=== PATIENT | female | born 1975 | race Caucasian/White ===

== ENCOUNTER 2016-07-18 14:02 | Emergency (ER) | payer BC ==
[2016-07-18 14:07] VITALS: TEMP 98.1; BMI 24.7
[2016-07-18 14:41] LABS: MPV 8.7 fL (7.4-10.4)
--- NOTE | 2016-07-18 14:51 | EDPRACDOC ---
- General Information Chief Complaint: Chest Pain Stated Complaint: SENT FROM Time Seen by Provider: 07/18/16 14:28 Information Source: Patient Mode of Arrival: Car Home Medications: Home Medications Nuvaring 1 item PV DIR 07/18/16 Allergies/Adverse Reactions: Allergies Allergy/AdvReac Type Severity Reaction Status Date / Time No Known Allergies Allergy Verified 07/18/16 14:04 - History of Present Illness Onset: 2 days HPI: 2 DAYS OF CHEST TIGHTNESS. MORE PRONOUNCED AT REST. NOT EXERTIONAL. NO SOB. NO RECENT LONG TRIPS OR SURGERY. NO HTN, NO FAM HX CAD. SENT FROM URGENT CARE - [facility]. NO COUGH. ED Past Medical History - History Reviewed Yes Nurses notes reviewed and agree except as marked - Patient Medical History Psychological History: Denies: Depression Systemic History: Denies: Cancer Surgical History: Denies: Hysterectomy - Social Medical History Smoking Status: Never smoker EDM Review of Systems - Review of Systems ROS Negative Except as Marked: Yes All systems reviewed and were negative except as marked Constitutional: No Symptoms Reported Eyes: No Symptoms Reported Respiratory: No Symptoms Reported. negative: Shortness of Breath Cardiovascular: Chest Pain Gastrointestinal: No Symptoms Reported Genitourinary: No Symptoms Reported Neurological: No Symptoms Reported - Physical Exam Constitutional: Alert (Awake), No apparent distress Oriented to: Time, Person, Place Last recorded Vital Signs: Last Vital Signs Temp 98.1 F 07/18/16 14:22 Pulse 68 07/18/16 14:22 Resp 15 07/18/16 14:22 BP 169/88 07/18/16 14:22 Pulse Ox 98 07/18/16 14:22 Oxygen Pulse Oxygen Saturation 98 O2 Device Room Air Oxygen Flow Rate Fraction of Inspired Oxygen ( FIO2) - HEENT Head: Normal ( normocephalic) Eye Exam: Normal (PERRL, EOMI, Sclera white) Oropharynx: Normal (Pharynx:Moist without exudate,Gums-no swelling) Nose: No Symptoms Reported (septum midline) Neck: Normal (FROM, trachea at midline) - Respiratory/Cardiovascular Respiratory: Normal - CTA (BBS clear to auscultation without adventitious sounds ) Cardiovascular: Normal (RRR without murmur, gallop or rub) - GI Auscultation: Normal (NABS) Palpation: Normal (Soft,No rebound or guarding, non distended) Tenderness: Non tender Escobar's Sign: Negative - Musculoskeletal Back: Normal (Non-Tender) Extremities: Normal (Normal tone, Pulses 2+ No cyanosis or edema, FROM) - Integumentary Skin: Normal, Warm, Dry Lymphatics: Normal (no adenopathy) - Neurologic Memory Impaired: Normal Motor Function: Normal (Normal tone, Pulses 2+ No cyanosis or edema, FROM) Cranial Nerve: Normal (CN II-X11 intact sensation, strength 5/5) Cerebellar: Normal Mood Description: Normal Perception: Normal - Action ASA given in the ED: No Aspirin therapy held due to: Other-specify below* (not felt to be cardiac. ) - Results 07/18/16 14:35 07/18/16 14:35 - EKG EKG #1 EKG Time: 14:14 -: Yes EKG interpreted by me Rate: bpm: 69 Hope: Normal Rhythm: NSR Block: None Hypertrophy: None ST: Normal Comments: normal ekg Decision Time to Discharge: 15:58 - Departure Yes I personally saw and evaluated the patient. Disposition: Home Condition: Stable Final Diagnosis: Chest tightness Instructions: Chest Pain (ED) Education/Counseling Given To: Patient Education/Counseling Given Regarding: Diagnosis Referrals: None,No Provider [Primary Care Provider] - One Week Prescriptions: No Action Nuvaring 1 item PV DIR
[2016-07-18 14:55] LABS: BLOOD UREA NITROGEN 11 MG/DL (7-17); CALCIUM 9.4 MG/DL (8.4-10.2); CALCULATED OSMOLALITY 269 MOs/Kg (270-290); CHLORIDE 105 mEq/L (98-107); GLUCOSE 85 mg/dL (70-99); SODIUM LEVEL 141 mEq/L (137-146)
[2016-07-18] MEDS ORDERED: Pharmacy Review for Metformin - IV Contrast Given SCH (15:00)
--- NOTE | 2016-07-18 15:32 | DIRPT ---
CLINICAL DATA: Patient with chest tightness for 2 days. EXAM: CT ANGIOGRAPHY CHEST WITH CONTRAST TECHNIQUE: Multidetector CT imaging of the chest was performed using the standard protocol during bolus administration of intravenous contrast. Multiplanar CT image reconstructions and MIPs were obtained to evaluate the vascular anatomy. CONTRAST: 100 cc Isovue 370 COMPARISON: None. FINDINGS: Mediastinum/Nodes: No enlarged axillary, mediastinal or hilar lymphadenopathy. Normal heart size. No pericardial effusion. Aorta and main pulmonary artery normal in caliber. Adequate opacification of the pulmonary arterial system. No evidence for pulmonary embolism. Lungs/Pleura: The central airways are patent. Lungs are clear. No consolidative pulmonary opacities. No pleural effusion or pneumothorax. Upper abdomen: Liver is normal in size and contour. The adrenal glands are unremarkable. Musculoskeletal: No aggressive or acute appearing osseous lesions. Review of the MIP images confirms the above findings. IMPRESSION: No evidence for acute pulmonary embolism. No acute process within the chest. Electronically Signed By: Bandar Amato M.D. On: 07/18/2016 15:29
[2016-07-18 16:12] VITALS: BP 147/84; PULSE 66
== END 2016-07-18 16:10 | disposition home or self-care (01) ==
LOC: ED 14:02
DX: R07.89 Other chest pain (principal)
CPT/HCPCS: 36415; 71275; 80048; 82550; 84484; 85027; 85379; 93005; 99284; A9698